=== PATIENT | female | born 1950 | race Caucasian/White ===

== ENCOUNTER → 2018-02-19 07:48 | Outpatient (CLI) | payer MEDICARE, MEDICAID, SELFPAY ==
--- NOTE | 2018-02-19 | DI.RAD.S_ITS ---
PROCEDURE: XR CHEST 2V INDICATIONS: 3 weeks of cough, 5 weeks after right lung removal. TECHNIQUE: 2 views of the chest were acquired. COMPARISON: [facility], CT, THORAX WITH CONTRAST, 09/21/2017, 10:25. [facility], CR, CHEST 1 VIEW, 09/17/2017, 14:40. [facility], CR, CHEST 2 VIEW, 09/02/2017, 9:47. FINDINGS: Surgical changes and devices: The right lung reportedly has been removed. There is a air-fluid level within the right hemithorax, with gas at the apex measuring up to 6 cm in craniocaudad height. Expected mediastinal shift from left to right is present. Below the fluid level the visualization into the right hemithorax is limited as a result.. Lungs and pleura: No pleural effusions or pneumothorax. Lungs are clear. Mediastinum: Mediastinal contours are normal. Heart size is normal. Bones and chest wall: No suspicious bony abnormalities. Soft tissues appear unremarkable. IMPRESSION: Small 6 cm craniocaudad air collection above fluid within the right hemithorax in this patient who has undergone right pneumonectomy. No intervening images are available for review to establish whether the gas above the fluid on the right has increased or decreased over time. Therefore it may be warranted to obtain a followup chest plain film and one week to establish whether any change occurs. Increased air would not be an expected finding. Dictated by: Tyler Muller M.D. on 02/19/2018 at 11:31 Approved by: Tyler Muller M.D. on 02/19/2018 at 11:34
== END ==
PROVIDERS: Family Provider Physician Assistant; PCP Physician Assistant; Visit Provider Physician Assistant
DX: R05 Cough (principal)
CPT/HCPCS: 71046

== ENCOUNTER → 2018-06-21 11:35 | Outpatient (CLI) | payer MEDICARE, MEDICAID, SELFPAY ==
--- NOTE | 2018-06-21 | DI.RAD.S_ITS ---
PROCEDURE: XR CERVICAL SPINE 4V OR 5V INDICATIONS: CERVICALAGIA TECHNIQUE: 5 views of the cervical spine acquired. COMPARISON: None. FINDINGS: Bones: No fractures or dislocations to the T2 level. Degenerative endplate changes at C5-6 and C6-7 levels are seen. Oblique images demonstrate left-sided neuroforaminal narrowing at C6-7 level. Soft tissues: No prevertebral soft tissue swelling. IMPRESSION: Degenerative disc disease throughout mid to lower cervical spine with a left-sided neuroforaminal narrowing at C6-7 level. No compression fracture or traumatic spondylolisthesis. Dictated by: Jesus Hamilton M.D. on 06/21/2018 at 12:12 Approved by: Jesus Hamilton M.D. on 06/21/2018 at 12:14
== END ==
PROVIDERS: Family Provider Physician Assistant; PCP Physician Assistant; Visit Provider Physician Assistant
DX: M50.322 Other cervical disc degeneration at C5-C6 level (principal); M48.02 Spinal stenosis, cervical region
CPT/HCPCS: 72050

== ENCOUNTER → 2018-09-03 13:11 | Outpatient (CLI) | payer MEDICARE, MEDICAID, SELFPAY ==
--- NOTE | 2018-09-03 | DI.MG.S_ITS ---
BILATERAL DIGITAL SCREENING MAMMOGRAM 3D/2D WITH CAD: 09/03/2018 CLINICAL: Baseline exam. Routine screening. No prior exams were available for comparison. There are scattered fibroglandular elements in both breasts. Current study was also evaluated with a Computer Aided Detection (CAD) system. There are benign vascular calcifications in both breasts. No significant masses, calcifications, or other findings are seen in either breast. IMPRESSION: There is no mammographic evidence of malignancy. A 1 year screening mammogram is recommended. This exam was interpreted at Station ID: [id number]. NOTE: For mammograms, a report in lay terms will be sent to the patient. Approximately 15% of breast malignancies will not be visualized mammographically. In the management of a palpable breast mass, a negative mammogram must not discourage biopsy of a clinically suspicious lesion. Electronically Signed By: Josephine peterson/ramsey:09/03/2018 16:35:54 letter sent: Normal Exam ACR BI-RADS Category 2: Benign Finding(s) 3342F
== END ==
PROVIDERS: PCP Physician Assistant; Visit Provider Physician Assistant
DX: Z12.31 Encounter for screening mammogram for malignant neoplasm of breast (principal); M81.0 Age-related osteoporosis without current pathological fracture; Z78.0 Asymptomatic menopausal state; Z82.62 Family history of osteoporosis; Z85.42 Personal history of malignant neoplasm of other parts of uterus; Z85.118 Personal history of other malignant neoplasm of bronchus and lung
CPT/HCPCS: 77063; 77067; 77080

== ENCOUNTER 2018-10-25 07:11 | Day surgery (SDC) | payer MEDICARE, MEDICAID, SELFPAY ==
--- NOTE | 2018-10-25 | PATH_ITS ---
[facility] Accession Number: [id number] . 01 Material submitted: . hepatic flexure - HEPATIC FLEXURE POLYP . 02 Diagnosis: Hepatic Flexure, Polyp: Tubular adenoma. MRV/10/26/2018 . 02 Electronically signed: . Chandan Bajwa MD, PhD, Pathologist NPI- [id number] . 01 Gross description: . HEPATIC FLEXURE POLYP: Received in formalin are 2 fragment(s) of hines, soft tissue measuring 0.2 x 0.2 x 0.2 cm to 0.3 x 0.3 x 0.3 cm which is entirely submitted and submitted entirely in 1 cassette(s) /DMC /DMC . 02 Pathologist provided ICD-10: D12.3 . 02 CPT . 856498 Performed at: 01 [facility] [address] [id number] MD Daron Maxwell MD Phone: [phone] Performed at: 02 [facility] [address] [place], [place] [id number] MD Samantha Gómez MD Phone: [phone]
[2018-10-25 07:31] VITALS: BP 113/80; PULSE 114; RESP 16; TEMP 37.5; O2SAT 98; BMI 17.2
[2018-10-25] MEDS: SODIUM CHLORIDE 0.9% 1,000 ML 200 ML IV (08:13)
--- NOTE | 2018-10-25 08:39 | PM.HP.1 ---
History of Present Illness Date Patient Seen: 10/25/18 Time Patient Seen: 08:39 Chief complaint: [id number] Narrative: 68yo F for low risk screening colonoscopy. No family history of CRC, no alarm symptoms in patient. She had diarrhea and nausea over the weekend but did prep and feels well enough to proceed. No respiratory symptoms. Meds Home Medications Medication Instructions Recorded Confirmed Type calcium citrate-vitamin D3 1 tab PO DAILY 10/25/18 10/25/18 History lactobacillus comb no.10 1 cap DAILY 10/25/18 10/25/18 History [Probiotic] Allergies Allergy/AdvReac Type Severity Reaction Status Date / Time codeine [CODEINE] Allergy Severe STOMACH Verified 10/25/18 07:44 PAIN/SHORT OF BREATH Review of Systems Constitutional Constitutional: Reports as per HPI Exam Vital Signs (past 8 hours): - 10/25/18 07:31 Temperature 99.5 F Pulse Rate 114 H Respiratory Rate 16 Blood Pressure 113/80 Pulse Oximetry 98 Oxygen Delivery Method Room Air Narrative Exam Narrative: AAO, NAD, female of healthy weight EOMI, MMM, no scleral icterus unlabored RA soft, nt/nd MAEW visible skin dry and intact Assessment & Plan (1) Screening for colorectal cancer: Current visit: Yes Status: Acute Assessment & Plan narrative: - low risk screening colonoscopy --> all R/B/A discussed and pt wishes to proceed
[2018-10-25] MEDS: fentaNYL 250 MCG/5 ML INJ IV (09:04)
[2018-10-25] MEDS: MIDAZOLAM 5 MG/5 ML VIAL IV (09:05)
[2018-10-25 09:16] VITALS: BP 103/71; PULSE 92; RESP 18; TEMP 36.4; O2SAT 100
[2018-10-25 09:21] VITALS: BP 111/74; PULSE 94; RESP 25; O2SAT 99
[2018-10-25 09:26] VITALS: BP 113/76; PULSE 94; RESP 18; TEMP 36.9; O2SAT 100
[2018-10-25 09:30] VITALS: BP 112/74; PULSE 88; RESP 16; TEMP 37.1; O2SAT 98
--- NOTE | 2018-10-25 12:18 | PM.OP.ENDO ---
Operative Date/Time/Diagnoses Date of procedure: 10/25/18 Time of procedure: 09:18 Pre-op diagnosis: screening colonoscopy Post-op diagnosis: same Procedure & Clinicians Study performed: Low risk screening colonoscopy Same procedure as scheduled: Yes Indications: 68yo F for first screening colonoscopy. Surgeon: Sarahy George Procedure Notes SCOAP/Timeout: 841 Procedure in detail: After obtaining informed consent, the patient was brought to the GI suite and placed in the left lateral decubitus position on the examination table. After placement of appropriate monitors, the patient was given incremental doses of Versed and Fentanyl until an appropriate level of sedation was achieved. A time out was held per SCOAP protocol. A digital rectal examination was performed and did not reveal any masses or obstructing lesions but small external hemorrhoids are noted. The colonoscope was gently passed into the patient's anus and the entire colon navigated to the level of the cecum with minimal difficulty other than a tortuous sigmoid; a pediatric scope was used due to patient's small size and history of hysterectomy. Prep was adequate. Once in the cecum, the scope was slowly withdrawn being sure to go before and beyond all mucosal folds and prominences as able to get a thorough examination. A 4mm flat polyp was noted near the hepatic flexure and was removed for specimen using cold jumbo forceps; minimal bleeding noted. Other findings include moderate diverticulosis of the sigoid colon. At the level of the rectal vault, the scope was retroflexed and the internal anal canal was examined. The scope was straightened and air aspirated from the colon. The instrument was removed from the patient's body and the procedure was concluded. The patient was allowed to awaken from sedation without difficulty and taken to the post-anesthesia care unit in good condition. Scope withdrawal time: 9 min Sedation minutes: 29 Findings: diverticulosis and polyp (hepatic flexure, 4mm) Specimen(s): other (4mm sessile polyp of hepatic flexure) Complications: none Impression: 1. Moderate diverticulosis of the sigmoid colon 2. Polyp- 4mm, hepatic flexure Recommendations: Colonscopy in 5 years (pending path report) and High fiber diet Follow up: as needed Disposition: PACU
== END 2018-10-25 09:45 | disposition home or self-care (01) ==
PROVIDERS: PCP Physician Assistant; Visit Provider Surgery
PROC: 0DJD8ZZ Inspection of Lower Intestinal Tract, Via Natural or Artificial Opening Endoscopic (ICD-10-PCS; CPT 45378; principal; 2018-10-25 08:45)
DX: Z12.11 Encounter for screening for malignant neoplasm of colon (principal); K57.30 Diverticulosis of large intestine without perforation or abscess without bleeding; D12.3 Benign neoplasm of transverse colon
CPT/HCPCS: 45380; 88305; 99152; 99153; J2250; J3010

== ENCOUNTER → 2018-11-04 10:27 | Outpatient (CLI) | payer MEDICARE, MEDICAID, SELFPAY ==
--- NOTE | 2018-11-04 | DI.RAD.S_ITS ---
PROCEDURE: XR CHEST 2V INDICATIONS: Acute bronchitis, unspecified TECHNIQUE: 2 views of the chest were acquired. COMPARISON: [facility], CR, XR CHEST 2V, 02/19/2018, 7:38. FINDINGS: Surgical changes and devices: Postsurgical changes compatible with right pneumonectomy noted. Lungs and pleura: Left lung is clear. Right hemithorax is opacified compatible with prior pneumonectomy No left-sided pleural effusions or pneumothorax. Mediastinum: Mediastinal contours are normal. Heart size is normal. Bones and chest wall: No suspicious bony abnormalities. Soft tissues appear unremarkable. IMPRESSION: No acute cardiopulmonary disease process. Dictated by: Ijeoma Barrera MD, PhD on 11/04/2018 at 14:07 Approved by: Ijeoma Barrera MD, PhD on 11/04/2018 at 14:08
== END ==
PROVIDERS: PCP Physician Assistant; Visit Provider Student in an Organized Health Care Education/Training Program
DX: J20.9 Acute bronchitis, unspecified (principal)
CPT/HCPCS: 71046

== ENCOUNTER → 2018-12-17 10:53 | Outpatient (CLI) | payer MEDICARE, MEDICAID, SELFPAY ==
--- NOTE | 2018-12-17 | DI.RAD.S_ITS ---
PROCEDURE: FL BARIUM SWALLOW INDICATIONS: Dysphagia, unspecified COMPARISON: [facility], CR, XR CHEST 2V, 11/04/2018, 10:31. [facility], CT, THORAX WITH CONTRAST, 09/02/2017, 12:35. FINDINGS: Prior right pneumonectomy. The secondary mediastinal shift from left to right with resultant distortion of the normal curvature of the trachea and esophagus. Function: There is normal esophageal peristalsis. There is mild to moderate spontaneous and elicited gastroesophageal reflux. Morphology: Air-contrast images demonstrate normal mucosal morphology. Single contrast views show no esophageal strictures, extrinsic mass effects, or diverticula. Limited images of the stomach demonstrate normal appearance. IMPRESSION: Mild to moderate spontaneous and elicited gastroesophageal reflux associated with a small sliding hiatal hernia, without evidence of stricture or mass. The normal course of the esophagus is deviated by the prior postsurgical change of right pneumonectomy. There is no suspicion for mediastinal mass lesion. Dictated by: Tyler Muller M.D. on 12/17/2018 at 12:48 Approved by: Tyler Muller M.D. on 12/17/2018 at 12:51
== END ==
PROVIDERS: PCP Student in an Organized Health Care Education/Training Program; Visit Provider Student in an Organized Health Care Education/Training Program
DX: R13.10 Dysphagia, unspecified (principal); K21.9 Gastro-esophageal reflux disease without esophagitis; K44.9 Diaphragmatic hernia without obstruction or gangrene; Z98.1 Arthrodesis status
CPT/HCPCS: 74220